=== PATIENT | female | born 1975 ===

== ENCOUNTER 2024-07-14 07:45 | Inpatient (IN) | payer OTHER ==
[~2024-07-14] VITALS: Ht 167.6 cm; Wt 76.2 kg
[2024-07-14] MEDS ORDERED: SYNJARDY XR 121 EACH PO (08:55)
[2024-07-14] MEDS ORDERED: AMLODIPINE-OLM1 EAC3 PO (08:55)
[2024-07-14 08:58] VITALS: BP 136/75
[2024-07-14 09:13] LABS: URINE APPEARANCE Clear; URINE BILIRRUBIN Negative (NEGATIVE); URINE BLOOD Negative; URINE COLOR Yellow; URINE KETONE Negative (NEGATIVE); URINE LEUKOCYTE Small; URINE NITRATE Negative; URINE PROTEIN Trace (NEGATIVE); URINE UROBILINOGEN 0.2 E.U./dl
[2024-07-14 09:17] LABS: URINE BACTERIA 2479.6 uL (0.0-1933); URINE EPITHELIAL CELLS 21.8 uL (0.0-38.8); URINE WBC 121.5 uL (0.0-23.2)
[2024-07-14 09:22] LABS: EOS # 0.47 (0.04-0.54); EOS % 3.4 % (0.7-7.0); HEMATOCRIT 34.5 % (34.1-44.9); HEMOGLOBIN 10.7 g/dL (11.2-15.7); LYMPH % 17.4 % (19.3-53.1); MEAN CORPUSCULAR HEMOGLOBIN 24.7 pg (25.6-32.2); MONO # 0.63 (0.24-0.82); MONO % 4.6 % (4.7-12.5); NEUT # 10.14 (1.56-6.13); NEUT % 73.3 % (34.0-71.1); PLATELET COUNT 688 K/uL (163-369); RED BLOOD COUNT 4.34 M/uL (3.93-5.22); RED CELL DISTRIBUTION WIDTH 16.8 % (11.6-14.4)
[2024-07-14 09:39] LABS: INR 0.95; PROTHROMBIN TIME 10.4 SECONDS (9.0-11.5)
[2024-07-14 09:56] LABS: URINE CAST 0.14 uL (0.0-1.40); URINE GLUCOSE >=1000 MG/DL (NEGATIVE); URINE RBC 1.6 uL (0.0-20.8)
[2024-07-14 12:26] LABS: ALBUMIN 3.8 gm/dL (3.4-5.0); BILIRUBIN TOTAL 0.33 mg/dL (0.3-1.2); CALCIUM 9.9 mg/dL (8.5-10.1); CREATININE SERUM 0.96 mg/dL (0.55-1.02); GFR 62.03; GLOBULINA 4.4 G/DL (2.4-3.5); POTASSIUM 5.12 mEq/L (3.5-5.1); TOTAL PROTEIN 8.2 gm/dL (6.4-8.2)
[2024-07-22] MEDS ORDERED: CEFAZOLIN SODIUM 1,000 MG VIAL ONE (09:48)
[2024-07-22] MEDS ORDERED: DEXAMETHASONE SODIUM PHOSPHATE 4 MG/ML VIAL ONE (09:48)
[2024-07-22] MEDS ORDERED: MORPHINE SULFATE 4 MG/ML VIAL IV ONE (13:25)
[2024-07-22] MEDS ORDERED: INSULIN LISPRO 1,000 UNIT/10 ML UNITS SUBCUTANEO PRN (13:30)
[2024-07-22] MEDS ORDERED: DEXTROSE 50 % IN WATER 0.5 G/ML VIAL IV PRN (13:30)
[2024-07-22] MEDS ORDERED: ONDANSETRON HCL 2 MG/ML VIAL IV PRN (13:30)
[2024-07-22] MEDS ORDERED: ENALAPRILAT DIHYDRATE 1.25 MG/ML VIAL IV PRN (13:30)
[2024-07-22] MEDS ORDERED: ENALAPRILAT DIHYDRATE 1.25 MG/ML VIAL IV ONE (13:31)
[2024-07-22] MEDS ORDERED: CYCLOBENZAPRINE HCL 5 MG TABLET PO SCH (17:00)
[2024-07-22] MEDS ORDERED: DIPHENHYDRAMINE HCL 30 MG,LIDOCAINE HCL 30 ML,MAG HYDROX/ALUMINUM HYD/SIMETH 30 ML PO SCH (17:00)
[2024-07-22] MEDS ORDERED: DIPHENHYDRAMINE HCL 150 MG,LIDOCAINE HCL 60 ML,MAG HYDROX/ALUMINUM HYD/SIMETH 60 ML PO SCH (17:00)
[2024-07-22] MEDS ORDERED: TRAMADOL HCL 50 MG TABLET PO SCH (17:00)
[2024-07-22] MEDS ORDERED: ACETAMINOPHEN 500 MG GEL..CAP PO SCH (17:00)
[2024-07-22 20:18] VITALS: BP 155/90; O2SAT 97
[2024-07-22] MEDS ORDERED: PANTOPRAZOLE SODIUM 40 MG/VIAL VIAL IV PUSH SCH (21:00)
[2024-07-23 01:08] VITALS: BP 124/71; O2SAT 94
[2024-07-23 08:52] VITALS: BP 153/80; O2SAT 96
== END 2024-07-23 14:31 | disposition home or self-care (01) | DRG 627 ==
LOC: SURH 07-22 07:45 → O/R 07-22 08:09 → SURH 07-22 14:00 → MEDI 07-22 16:59
PROVIDERS: ADMIT Surgery; ATTEND Surgery
PROC: 0GTG0ZZ Resection of Left Thyroid Gland Lobe, Open Approach (ICD-10-PCS; principal; 2024-07-22 14:00)
DX: C73 Malignant neoplasm of thyroid gland (principal)

== ENCOUNTER 2024-11-11 08:00 | Day surgery (SDC) | payer OTHER ==
[2024-11-08 08:51] LABS: BASO % 0.9 % (0.1-1.2); EOS # 0.72 (0.04-0.54); EOS % 5.1 % (0.7-7.0); LYMPH # 2.66 (1.18-3.74); LYMPH % 19.0 % (19.3-53.1); MEAN PLATELET VOLUME 9.30 fl (9.4-12.4); MONO # 0.73 (0.24-0.82); MONO % 5.2 % (4.7-12.5); NEUT # 9.72 (1.56-6.13); NEUT % 69.5 % (34.0-71.1); RED CELL DISTRIBUTION WIDTH 15.6 % (11.6-14.4)
[2024-11-08 08:54] VITALS: BP 160/93
[2024-11-08 09:16] LABS: INR 0.94
[2024-11-08 09:51] LABS: ALT/SGPT 22.0 U/L (12-78); AST/SGOT 15.0 U/L (15-37); BILIRUBIN TOTAL 0.34 mg/dL (0.3-1.2); BUN CREA RATIO 29.0 (7.0-25.0); CREATININE SERUM 1.03 mg/dL (0.55-1.02); GFR 56.95; GLOBULINA 4.0 G/DL (2.4-3.5); GLUCOSE FASTING 102.0 mg/dL (65-100); OSMOLALITY SERUM 282.0 MOSM/KG (275-295)
[2024-11-08 09:52] LABS: URINE APPEARANCE Clear; URINE BILIRRUBIN Negative (NEGATIVE); URINE BLOOD Negative; URINE COLOR Yellow; URINE KETONE Negative (NEGATIVE); URINE LEUKOCYTE Small; URINE NITRATE Positive; URINE PROTEIN Trace (NEGATIVE); URINE UROBILINOGEN 0.2 E.U./dl
[2024-11-08 09:56] LABS: URINE EPITHELIAL CELLS 25.8 uL (0.0-38.8); URINE WBC 102.2 uL (0.0-23.2)
[2024-11-08 09:59] LABS: URINE BACTERIA > 9821.5 uL (0.0-1933); URINE CAST 0.29 uL (0.0-1.40); URINE GLUCOSE >=1000 MG/DL (NEGATIVE); URINE RBC 1.6 uL (0.0-20.8)
[~2024-11-11] VITALS: Ht 167.6 cm; Wt 77.1 kg
[~2024-11-11 08:00] MED LIST: AMLODIPINE-OLM1 EAC3 PO; CEFAZOLIN SODIUM 1,000 MG VIAL IV ONE; CEFAZOLIN SODIUM 1,000 MG VIAL ONE; DEXAMETHASONE SODIUM PHOSPHATE 4 MG/ML VIAL IV ONE; DEXAMETHASONE SODIUM PHOSPHATE 4 MG/ML VIAL ONE; SYNJARDY XR 121 EACH PO
[2024-11-11] MEDS ORDERED: ONDANSETRON HCL 2 MG/ML VIAL IV PRN (10:00)
[2024-11-11] MEDS ORDERED: ENALAPRILAT DIHYDRATE 1.25 MG/ML VIAL IV PRN (10:00)
[2024-11-11] MEDS ORDERED: TRAMADOL HCL 50 MG TABLET PO SCH (17:00)
[2024-11-11] MEDS ORDERED: CYCLOBENZAPRINE HCL 5 MG TABLET PO SCH (17:00)
[2024-11-11] MEDS ORDERED: ACETAMINOPHEN 500 MG GEL..CAP PO SCH (17:00)
[2024-11-11] MEDS ORDERED: Calcium Carbonate 1 TAB TABLET PO SCH (17:00)
[2024-11-11] MEDS ORDERED: DIPHENHYDRAMINE HCL 75 MG,LIDOCAINE HCL 30 ML,MAG HYDROX/ALUMINUM HYD/SIMETH 30 ML PO SCH ×2 (17:00)
[2024-11-11] MEDS ORDERED: CALCITRIOL 0.5 MCG CAPSULE PO SCH (17:00)
[2024-11-13] MEDS ORDERED: LEVOTHYROXINE SODIUM 112 MCG TABLET PO SCH (07:00)
== END 2024-11-11 14:00 | disposition home or self-care (01) ==
LOC: O/R 08:00 → SURH 08:00 → CIR.AMB 08:00 → SURH 12:30 → CIR.AMB 14:00 → O/R 14:00
PROVIDERS: ATTEND Surgery
DX: C73 Malignant neoplasm of thyroid gland (principal)